=== PATIENT | female | born 1970 | race Caucasian/White ===

== ENCOUNTER → 2017-07-09 | Outpatient (CLI) | payer BC ==
--- NOTE | 2017-07-09 14:15 | RADIOLOGY IMAGING REPORT ---
FACILITY: [facility] PATIENT NAME: Kacie Cheng : 1970 MR: [id number] V: [id number] EXAM DATE: [id number] ORDERING PHYSICIAN: AMBAR MCGRATH TECHNOLOGIST: Location: [facility] - [place] Patient: Kacie Cheng : 1970 Visit/Account:[id number] Date of Sevice: 07/09/2017 EXAMINATION: Single Isotope SPECT Imaging with Exercise and Gated SPECT Imaging DATE OF EXAMINATION: 07/09/17 DATE OF INTERPRETATION: 07/09/17 REQUESTING PHYSICIAN: AMBAR MCGRATH INDICATION: The patient is a 47-year-old F evaluated for chest pain. PROCEDURE: After informed consent the patient received an intravenous injection of 13.2 mCi of Tc-9 9m sestamibi followed at the appropriate time interval by rest imaging. The patient then exercised a ccording to the standard Sam protocol for 6 minutes achieving 7 METS. Resting heart rate was 85 bp m with a peak heart rate of 166 bpm which is 95 % of maximal predicted heart rate for age. Blood pr essure at rest was 145 / 93; blood pressure during exercise was 182 / 89. There was no chest pain du ring exercise. Exercise was discontinued because of target heart rate achieved. Baseline EKG demons trates sinus rhythm. There were no EKG changes of ischemia at peak exercise. Approximately one shu te and 30 seconds prior to the termination of exercise, the patient received an intravenous injection of 30.5 mCi of Tc-99m sestamibi followed by stress imaging. RAW DATA: Examination of the summed raw data revealed a good quality study. MYOCARDIAL PERFUSION: The tomographic images demonstrate normal myocardial perfusion with no evidenc e of infarct or ischemia. There is no TID. GATED IMAGES: The gated images demonstrate hyperdynamic ejection fraction >70% with normal wall mercy on and thickening. IMPRESSION: 1. Normal treadmill ECG. 2. Normal myocardial perfusion scan. 3. Hyperdynamic LV systolic function; LVEF >70%. 4. Based on the results of this exam, the patient appears to be at low risk for future cardiovascular events. Report Dictated By: Aba Ramirez at 07/09/2017 2:07 PM Report E-Signed By: Aba Ramirez at 07/09/2017 2:11 PM WSN:[id number]
== END ==
LOC: RESP 02:04
PROVIDERS: ATTEND Physician Assistant
DX: R07.9 Chest pain, unspecified (principal)
CPT/HCPCS: 78452; 93017; A9500

== ENCOUNTER → 2018-05-21 | Outpatient (CLI) | payer BC ==
--- NOTE | 2018-05-21 12:51 | RADIOLOGY IMAGING REPORT ---
FACILITY: [facility] PATIENT NAME: JAMESON FIGUEROA : [id number] MR: [id number] V: [id number] EXAM DATE: [id number] ORDERING PHYSICIAN: DONALD BORGES TECHNOLOGIST: Alaina Ness PROCEDURE:BILATERAL DIGITAL SCREENING MAMMOGRAM WITH CAD ASSISTED INTERPRETATION & 3D TOMOSYNTHESIS COMPARISON:Prior mammogram 05/23/2013. INDICATIONS:screening family history of breast carcinoma in maternal grandmother. TISSUE DENSITY: Is extremely dense, which limits the sensitivity of mammography. FINDINGS: Views obtained bilateral full field 2D & 3D tomography CC & MLO. There is a potential 12mm mass in the Left central breast seen on CC view only. Scattered benign appearing microcalcifications in both breasts are essentially unchanged. DIAGNOSTIC CATEGORY 0--INCOMPLETE: NEED ADDITIONAL IMAGING EVALUATION. IMPRESSION: BIRADS 0: Incomplete. Needs additional evaluation. RECOMMENDATION: Left breast focal compression 3D tomography in CC view, and ML full field 2D & 3D. Left breast Ultrasound, if indicated. Dictated by: Lucita Yanez M.D. on 05/21/2018 at 9:57 Transcribed by: WILLIS on 05/21/2018 at 10:20 Approved by: Lucita Yanez M.D. on 05/21/2018 at 12:50 [facility]
== END ==
LOC: MAMO 02:03
PROVIDERS: ATTEND Nurse Practitioner Women's Health
DX: R92.2 Inconclusive mammogram (principal)
CPT/HCPCS: 77063; 77067

== ENCOUNTER 2018-05-27 00:47 | Day surgery (SDC) | payer BC ==
[~2018-05-27] VITALS: Ht 172.7 cm; Wt 72.6 kg
[2018-05-27 06:36] VITALS: BP 117/79
[2018-05-27] MEDS ORDERED: NORMOSOL R SOLN(*) 1000 ML BAG 1,000 ML IV PRN (06:45)
[2018-05-27] MEDS ORDERED: LIDOCAINE/SOD BICARB 8.4% SYR ID ONE (06:45)
[2018-05-27] MEDS ORDERED: PROPOFOL EMUL(*) 10MG/ML 20 ML 40 ML ONE (07:08)
[2018-05-27] MEDS ORDERED: LIDOCAINE MPF 1% 5 ML VIAL ONE (07:08)
[2018-05-27 07:47] VITALS: BP 90/47
[2018-05-27 07:57] VITALS: BP 96/54
--- NOTE | 2018-05-27 08:07 | NUR ---
RN IN ROOM TO CHECK ON PT. PT. RESPONSIVE. NO CONCERNS. SLEEPY. ENCOURAGED TO REST. PT. PLACED ON RA.
[2018-05-27 08:25] VITALS: BP 100/54
[2018-05-27 08:50] VITALS: BP 117/81
[2018-05-27 08:52] VITALS: BP 119/87
--- NOTE | 2018-05-27 09:15 | NUR ---
0845 SBAR REPORT RECEIVED FROM Karissa RUIZ. 0850 PATIENT STATED SHE WAS READY TO GO. BEGAN DOING ORTHOSTATICS WITH PATIENT. SHE DENIES ANY DIZZINESS OR LIGHTHEADEDNESS. 0852 PATIENT BEGAN STANDING AND WAS STABLE ON HER FEET 0855 PATIENT BEGAN GETTING DRESSED 0906 FINISHED DISCHARGE INSTRUCTIONS 0910 IV WAS DC'D WITH CATH INTACT 0911 PATIENT USED THE RESTROOM ROOM 0915 PATIENT WAS TAKEN OUT AND WAS AMBULATORY ON DISCHARGE. SHE WAS ACCOMPANIED BY HER AND Wilfred PEREZ. SHE DENIES ANY PAIN OR NAUSEA. SHE WAS STABLE ON HER FEET. LUNGS ARE CLEAR. BOWEL SOUNDS ARE HYPERACTIVE. SEE DISCHARGE ASSESSMENT.
== END 2018-05-27 09:15 | disposition home or self-care (01) ==
LOC: OR 00:47
PROVIDERS: ATTEND Family Medicine
DX: Z12.11 Encounter for screening for malignant neoplasm of colon (principal); Z83.71 Family history of colonic polyps
CPT/HCPCS: 00812; 45378; J2001; J2704

== ENCOUNTER → 2018-06-14 | Outpatient (CLI) | payer BC ==
--- NOTE | 2018-06-15 09:02 | RADIOLOGY IMAGING REPORT ---
FACILITY: [facility] - [place] PATIENT NAME: JAMESON FIGUEROA : [id number] MR: [id number] V: [id number] EXAM DATE: ORDERING PHYSICIAN: DONALD BORGES TECHNOLOGIST: Alaina Ness PROCEDURE:LEFT DIGITAL DIAGNOSTIC MAMMOGRAM WITH CAD ASSISTED INTERPRETATION & 3D TOMOSYNTHESIS COMPARISON:Prior mammograms 05/21/18, 05/23/13. INDICATIONS:FURTHER EVAL FINDINGS: The patient received full field Left CC view, Spot compression view in the Left CC projection and mediolateral view of the Left breast all with 3D Tomosynthesis. The potential mass posterior to mid nipple line in the mid breast on the recent Left CC view could not be re-demonstrated. This area was freely compressible. This apparently represented a summation shadow. DIAGNOSTIC CATEGORY 1--NEGATIVE. RECOMMENDATIONS: ROUTINE MAMMOGRAM AND CLINICAL EVALUATION. IMPRESSION: BIRADS 1: Negative. No significant abnormality of the Left breast is seen. Dictated by: Stephanie Darnell M.D. on 06/14/2018 at 18:17 Transcribed by: WILLIS on 06/15/2018 at 8:37 Approved by: Stephanie Darnell M.D. on 06/15/2018 at 9:01 [facility]
== END ==
LOC: US 03:41
PROVIDERS: ATTEND Nurse Practitioner Women's Health
DX: R92.8 Other abnormal and inconclusive findings on diagnostic imaging of breast (principal)
CPT/HCPCS: 77061; 77065